=== PATIENT | female | born 1985 | race Caucasian/White ===

== ENCOUNTER 2017-03-11 17:42 | Emergency (ER) | payer OTHER ==
[~2017-03-11] VITALS: Ht 154.9 cm; Wt 84.6 kg
[~2017-03-11 17:42] MED LIST: ATIVAN0.5 M1 PO; CEPACOL SORE TH1 LO3 MM; COL100UDC PO; CYCLOBENZAPRINE5 MG PO; DEPO-PROVER150 MG/M1 IM; LAC PO; METFORMIN ER500 M1 PO; NORCO1 TA2 PO; ZITHROMAX Z-PA250 MG PO; [UNRECOGNIZED DRUG - CODE]
[2017-03-11 17:51] VITALS: BP 112/91
== END 2017-03-11 20:30 | disposition home or self-care (01) ==
LOC: ED 17:42
DX: M25.562 Pain in left knee (principal); E11.9 Type 2 diabetes mellitus without complications
CPT/HCPCS: J1885

== ENCOUNTER 2017-09-30 12:04 | Emergency (ER) | payer OTHER ==
[2017-09-30 13:09] LABS: BASOPHIL % 0.5 % (0-2); PLATELET COUNT 350 x10^3mcL (130-400)
[2017-09-30 13:11] LABS: RED CELL DISTRIBUTION WIDTH 14.7 % (11.5-14.5)
[2017-09-30 13:18] LABS: CALCIUM 8.7 mg/dL (8.5-10.1); CARBON DIOXIDE 29.8 mmol/L (21-32); CHLORIDE SERUM 105 mmol/L (98-107); CREATININE SERUM 0.7 mg/dL (0.6-1.0); GFR1 > 60 mL/min; GLUCOSE SERUM 96 mg/dL (74-106); POTASSIUM SERUM 3.9 mmol/L (3.5-5.1); SODIUM SERUM 138 mmol/L (136-145)
[2017-09-30 13:22] LABS: ALBUMIN 3.5 g/dL (3.4-5.0); ALKALINE PHOSPHATASE 65 U/L (46-116); ALT/SGPT 113 U/L (14-59); AST/SGOT 72 U/L (15-37); BILIRUBIN TOTAL 0.26 mg/dL (0.20-1.00); LIPASE 180 IU/L (73-393)
[2017-09-30 13:23] LABS: TOTAL PROTEIN, SERUM 8.4 g/dL (6.4-8.2)
[2017-09-30 14:00] VITALS: BP 129/81
== END 2017-09-30 14:00 | disposition home or self-care (01) ==
LOC: ED 12:04
PROVIDERS: Emergency Medicine
DX: F13.239 Sedative, hypnotic or anxiolytic dependence with withdrawal, unspecified (principal); R53.1 Weakness; R30.0 Dysuria; T42.4X5A Adverse effect of benzodiazepines, initial encounter; Y92.89 Other specified places as the place of occurrence of the external cause
CPT/HCPCS: 36415